=== PATIENT | female | born 1990 | race Caucasian/White ===

== ENCOUNTER 2022-11-29 13:30 | Emergency (ER) | payer OTHER ==
[~2022-11-29] VITALS: Ht 170.2 cm; Wt 78.0 kg
[2022-11-29 14:18] VITALS: O2SAT 100
[2022-11-29] MEDS ORDERED: PRED50TA PO (15:40)
== END 2022-11-29 15:44 | disposition home or self-care (01) ==
LOC: ER 13:30
DX: L42 Pityriasis rosea (principal); Z79.899 Other long term (current) drug therapy
CPT/HCPCS: A4663